=== PATIENT | male | born 1980 | race Two or more races ===

== ENCOUNTER 2021-10-26 21:44 | Emergency (ER) | payer SELFPAY ==
[~2021-10-26] VITALS: Ht 177.8 cm; Wt 91.0 kg
[2021-10-26 22:30] VITALS: BP 168/97
[2021-10-26 22:46] LABS: BASOPHILS % 1.4 % (0.0-2.0); EOSINOPHILS % 0.3 % (0.0-5.0); HEMATOCRIT. 34.8 % (42.0-52.0); HEMOGLOBIN. 11.5 g/dL (14.0-18.0); MEAN CORPUSCULAR VOLUME 81.7 fL (80.0-94.0); MEAN PLATELET VOLUME 6.3 fl (7.4-10.4); MONOCYTES % 9.2 % (2.0-8.0); NEUTROPHILS % 79.1 % (40.0-76.0); PLATELET 743 x1000/uL (130-400); RED BLOOD CELL COUNT 4.26 mill/uL (4.7-6.1); RED CELL DISTRIBUTION WIDTH 17.2 % (11.6-14.6)
[2021-10-26 22:52] LABS: CHLORIDE 103 mEq/L (98-107)
[2021-10-26 22:59] LABS: ETHANOL BLOOD < 10 mg/dL
== END 2021-10-26 23:05 | disposition home or self-care (01) ==
LOC: ER 21:44
DX: T43.621A Poisoning by amphetamines, accidental (unintentional), initial encounter (principal); F15.129 Other stimulant abuse with intoxication, unspecified; R41.82 Altered mental status, unspecified; R03.0 Elevated blood-pressure reading, without diagnosis of hypertension; T40.711A Poisoning by cannabis, accidental (unintentional), initial encounter; F12.129 Cannabis abuse with intoxication, unspecified; Y92.480 Sidewalk as the place of occurrence of the external cause
CPT/HCPCS: 36415; 80053; 80320; 82962; 85025; 99283; G0480